=== PATIENT | male | born 1980 | race Caucasian/White ===

== ENCOUNTER 2016-07-14 08:21 | Emergency (ER) ==
[2016-07-14 08:28] VITALS: BP 147/88; TEMP 98.4; BMI 37.9
[2016-07-14] MEDS ORDERED: TORADOL IVP STA (08:45)
--- NOTE | 2016-07-14 08:45 | ED.PDOC ---
General ED Provider: Dr. NIURKA ROMERO JR Chief Complaint: Abdominal Pain Stated Complaint: PAIN TO LEFT FLANK TO ABD AND RADIATES INTO GROIN SINCE WEDNESDAY --SIMILAR TO KIDNEY STONE IN PAST--PAIN NOW IN LEFT TESTICLE[End]2 weeks 98.4 82 20 97% 147/88 6/10 LEFT FLANK PAIN[End]. VASECTOMY,KIDNEY STONE(removed per dr westbrook at [facility]) Time Seen by Physician: 09:09 Mode of Arrival: Walk-In Information Source: Patient Exam Limitations: No limitations Primary Care Provider: MARIA L ESPANA Nursing and Triage Documentation Reviewed and Agree: No Review of Systems - Review Of Systems Constitutional: Reports: No symptoms Eyes: Reports: No symptoms Ears, Nose, Mouth, Throat: Reports: No symptoms Respiratory: Reports: No symptoms Cardiac: Reports: No symptoms GI: Reports: Abdominal pain (left back and genital) : Reports: Frequency, Urgency, Other (dark) Musculoskeletal: Reports: Back pain (left flank) Skin: Reports: No symptoms Neurological: Reports: No symptoms Endocrine: Reports: No symptoms Hematologic/Lymphatic: Reports: No symptoms All Other Systems: Other Past Medical History - Past Medical History Previously Healthy: Yes Endocrine: Reports: None Cardiovascular: Reports: None Respiratory: Reports: None Hematological: Reports: None Gastrointestinal: Reports: None Genitourinary: Reports: Kidney stones, Other Neuro/Psych: Reports: None Musculoskeletal: Reports: None Cancer: Reports: None - Surgical History General Surgical History: Reports: Hernia Repair (BILAT. HERNIA REPAIR WITH MESH ), Other (R hernia repair with mesh) - Family History Family History: Reports: Unknown - Social History Smoking Status: Former smoker Hx Substance Use: No Alcohol Screening: Occasionally Physical Exam - Physical Exam Appearance: Ill-appearing Pain Distress: Moderate Eyes: ELIJAH, EOMI, Conjunctiva clear ENT: Ears normal, Nose normal, Oropharynx normal Neck: Supple Respiratory: Airway patent, Breath sounds clear, Breath sounds equal, Respirations nonlabored Cardiovascular: RRR, Pulses normal, No rub, No murmur GI/: Soft, No masses (left testicle pain; normal sensitivity no epididymal tenderness on exam ), Tender (minimal inguinal tenderness, left cvat) Musculoskeletal: Normal strength, ROM intact, No edema, No calf tenderness Skin: Warm, Dry, Normal color Neurological: Sensation intact, Motor intact, Reflexes intact, Cranial nerves intact, Alert, Oriented Psychiatric: Affect appropriate, Mood appropriate Critical Care Note - Critical Care Note Total Time (mins): 0 Course - Course Hematology/Chemistry: 07/14/16 09:00 07/14/16 09:00 Orders, Labs, Meds: Lab Review 07/14/16 07/14/16 05:05 09:00 WBC 8.66 RBC 5.20 Hgb 15.5 Hct 44.3 MCV 85.2 MCH 29.8 MCHC 35.0 RDW Coeff of [place] 11.9 Plt Count 275 Immature Gran % (Auto) 0.6 Neut % (Auto) 70.6 Lymph % (Auto) 20.8 [place] % (Auto) 6.1 Eos % (Auto) 1.3 Baso % (Auto) 0.6 Immature Gran # (Auto) 0.1 Neut # 6.1 Lymph # 1.8 [place] # 0.5 Eos # 0.1 Baso # 0.1 Sodium 141 Potassium 3.4 L Chloride 102 Carbon Dioxide 28 Anion Gap 14.4 BUN 9 Creatinine 0.84 Estimated GFR (MDRD) 104.00 BUN/Creatinine Ratio 10.71 Glucose 111 H Calcium 9.4 Total Bilirubin 0.47 AST 13 L ALT 15 Alkaline Phosphatase 82 Total Protein 7.4 Albumin 3.9 Globulin 3.5 Albumin/Globulin Ratio 1.11 Amylase 45 Lipase 25 Urine Color Yellow Urine Clarity Clear Urine pH 7.5 Ur Specific [place] 1.020 Urine Protein Negative Urine Glucose (UA) Negative Urine Ketones Negative Urine Blood Negative Urine Nitrite Negative Urine Bilirubin Negative Urine Urobilinogen 0.2 Ur Leukocyte Esterase Negative Orders Category Date Time Status ED IV/MEDIPORT/POWERPORT .ONCE EMERGENCY 07/14/16 08:44 Active AMYLASE Stat LAB 07/14/16 09:00 Completed CBC W/ AUTO DIFF Stat LAB 07/14/16 09:00 Completed COMPREHENSIVE METABOLIC PANEL Stat LAB 07/14/16 09:00 Completed LIPASE Stat LAB 07/14/16 09:00 Completed URINALYSIS C & S IF INDICATED Stat LAB 07/14/16 05:05 Completed 0.9 % Sodium Chloride [Saline Flush] MEDS 07/14/16 08:44 Active 1 syr IVF PRN PRN Ketorolac Tromethamine [Toradol] MEDS 07/14/16 08:45 Discontinued 30 mg IVP ONCE STA CT ABDOMEN/PELVIS WO CONTRAST Stat RADS 07/14/16 08:44 Completed Medications Generic Name Dose Route Start Last Admin Trade Name Freq PRN Reason Stop Dose Admin Sodium Chloride 1 syr 07/14/16 08:44 07/14/16 09:09 Saline Flush IVF 1 syr PRN PRN Administration To flush IV Discontinued Medications Generic Name Dose Route Start Last Admin Trade Name Freq PRN Reason Stop Dose Admin Ketorolac Tromethamine 30 mg 07/14/16 08:45 07/14/16 09:09 Toradol IVP 07/14/16 08:46 30 mg ONCE STA Administration Vital Signs: Temp Pulse Resp BP Pulse Ox 07/14/16 08:22 98.4 F 82 20 147/88 H 97 Departure - Departure Time of Disposition: 10:08 Disposition: HOME SELF-CARE Discharge Problem: Abdominal pain Instructions: Acute Abdominal Pain (ED) Condition: Good Pt referred to PMD for follow-up: Yes Additional Instructions: toradol for pain, may use naproxen(aleve)instead 500mg naproxen twice a day or 10mg toradol four times a day recheck PMD this week consider urology referral for symptoms check temperature daily cough deeply twice a day return if worse, if discharge, or new pain norco for pain not releived- causes constipation Prescriptions: Hydrocodone Bit/Acetaminophen [[place] 5-325] 1 - 2 tab PO Q6HR PRN #12 tablet PRN Reason: pain Ketorolac Tromethamine [Toradol] 10 mg PO QID PRN #20 tablet PRN Reason: PAIN Allergies/Adverse Reactions: Allergies No Known Allergies Allergy (Verified 07/14/16 08:29) Home Medications: Ambulatory Orders Losartan/Hydrochlorothiazide [Losartan-Hctz 100-25 mg Tab] 1 each PO BEDTIME 08/13 Zolpidem Tartrate [Ambien] 10 mg PO PRN PRN 04/02/16 Hydrocodone Bit/Acetaminophen [[place] 5-325] 1 - 2 tab PO Q6HR PRN #12 tablet Ketorolac Tromethamine [Toradol] 10 mg PO QID PRN #20 tablet 07/14/16
[2016-07-14 09:02] LABS: BILIRUBIN,URINE Negative (NEGATIVE); KETONES,URINE Negative (NEGATIVE); LEUKOCYTE ESTERASE ,URINE Negative (NEGATIVE); NITRITE,URINE Negative (NEGATIVE); PH,URINE 7.5 (5-9); PROTEIN,URINE Negative (NEGATIVE); URINE, BLOOD Negative (NEGATIVE)
[2016-07-14 09:18] LABS: ADD URINE MICROSCOPIC NO
--- NOTE | 2016-07-14 09:28 | CT ---
Examination: Noncontrasted helical CT examination of the abdomen pelvis. Comparison: 09/11/2014. Reason for study: Abdominal pain. FINDINGS: Patchy ground-glass and basilar atelectasis in the right lung base. No pneumothorax, ple ural effusion, or focal consolidation is seen within the lung bases. The heart does not appear enla rged. Evaluation of the intra-abdominal solid organs are limited by lack of intravenous contrast administr ation. The liver, spleen, adrenal glands, gallbladder, and pancreas are unremarkable. There is a similar a ppearing superior pole left renal cyst. No hydronephrosis, nephrolithiasis, or hydroureter is seen in either kidney. There is no focal bowel dilatation or transition point. The appendix is unremarkable without periapp endiceal fat stranding. No inflammatory changes are seen within the mesentery. No pelvic free fluid or intra-abdominal free air. There is a small periumbilical fat-containing hernia. No osteoblastic or osteolytic lesions. Typic ally benign appearing bone islands are noted in the L3 and L4 vertebral bodies. Impression: No acute findings are seen within the abdomen or pelvis.
[2016-07-14 09:30] LABS: BASOPHILS # (AUTO) 0.1 K/uL (0-0.2); BASOPHILS % (AUTO) 0.6 % (0.0-3.0); EOSINOPHILS # (AUTO) 0.1 K/ul (0.0-0.7); EOSINOPHILS % (AUTO) 1.3 % (0.0-7.0); HEMATOCRIT 44.3 % (42.0-52.0); HEMOGLOBIN 15.5 g/dl (14.0-18.0); IMMATURE GRANULOCYTE % (AUTO) 0.6 % (0.0-5.0); LYMPHOCYTES # (AUTO) 1.8 K/uL (0.60-3.4); LYMPHOCYTES % (AUTO) 20.8 (10.0-50.0); MEAN CORPUSCULAR HEMOGLOBIN 29.8 pg (27.0-31.0); MEAN CORPUSCULAR VOLUME 85.2 fl (80.0-94.0); MONOCYTES # (AUTO) 0.5 K/uL (0.4-2.0); MONOCYTES % (AUTO) 6.1 (0-10); NEUTROPHILS # (AUTO) 6.1 K/ul (2.0-6.9); NEUTROPHILS % (AUTO) 70.6; PLATELET COUNT 275 10^3/uL (140-440); WHITE BLOOD COUNT 8.66 K/ul (4.2-10.2)
[2016-07-14 09:50] LABS: ALBUMIN 3.9 g/dL (3.4-5.0); ALBUMIN/GLOBULIN RATIO 1.11; ANION GAP 14.4; BILIRUBIN,TOTAL 0.47 mg/dL (0.00-1.20); BUN/CREATININE RATIO 10.71; CALCIUM 9.4 mg/dL (8.2-10.2); CREATININE 0.84 mg/dL (0.60-1.10); POTASSIUM 3.4 mmol/L (3.5-5.1); TOTAL PROTEIN 7.4 g/dL (6.4-8.2)
== END 2016-07-14 10:36 | disposition home or self-care (01) ==
LOC: ED 08:21
DX: R10.9 Unspecified abdominal pain (principal); M54.9 Dorsalgia, unspecified; N50.812 Left testicular pain; R35.0 Frequency of micturition; R39.15 Urgency of urination; Z87.442 Personal history of urinary calculi
CPT/HCPCS: 36415; 80053; 81001; 82150; 83690; 85025; 96374; 99283

== ENCOUNTER 2016-07-28 16:45 | Outpatient (CLI) ==
[2016-07-28 17:01] LABS: BILIRUBIN,URINE Negative (NEGATIVE); KETONES,URINE Trace (NEGATIVE); LEUKOCYTE ESTERASE ,URINE Negative (NEGATIVE); NITRITE,URINE Negative (NEGATIVE); PH,URINE 5.5 (5-9); PROTEIN,URINE Negative (NEGATIVE); URINE, BLOOD Trace-intact (NEGATIVE)
[2016-07-28 17:02] LABS: ADD URINE MICROSCOPIC YES
== END 2016-07-28 16:46 | disposition home or self-care (01) ==
LOC: LAB 16:45
PROVIDERS: ATTEND Family Medicine
DX: R30.0 Dysuria (principal)
CPT/HCPCS: 81001

== ENCOUNTER 2016-07-30 06:51 | Outpatient (CLI) ==
--- NOTE | 2016-07-30 08:59 | MRI ---
EXAM: MRI lumbar spine without IV contrast. DATE: 30 July 2016. HISTORY: Low back pain with sciatica. Tingling and pain in the left leg, numbness left foot. TECHNIQUE: Sagittal and axial T1W and T2W sequences of the lumbar spine along with sagittal IR and coronal T2W sequences were obtained using 1.2 [place] magnet. No IV contrast. COMPARISON: CT abdomen/pelvis 07/14/2016. FINDINGS: There are five [id number] lumbar vertebra. There is no lumbar scoliosis. No acute lumbar fracture, subluxation, osseous malignancy, or pars interarticularis defect is identified. Nanci mbar vertebra are normal in height. Bone marrow signal is normal. Chronic Schmorl's nodes are seen at T11, T12, L1, L2, and L3. Bone marrow signal is normal. Mild disc space narrowing is seen at L 5-S1. Remaining intervertebral discs are normal in height. Congenitally short pedicles are observe d at several levels. No sacral fracture or stress reaction is evident. SI joints are unremarkable. Conus medullaris terminates at L1 inferior endplate. Visible spinal cord is normal. No retroperitoneal lymphadenopathy, paraspinal mass, or aortic aneurysm is detected. Paraspinal mus culature is symmetric bilaterally. Visible portions of the liver, spleen, adrenal glands and kidney s are normal. Segmental analysis: T12-L1: Normal. L1-2: Minimal posterior disc bulge and a dorsal epidural fat cause triangulation the canal. Each f oramen is patent. L2-3: Minimal concentric disc bulge, minor facet arthropathy, and dorsal epidural fat cause moderat e thecal sac narrowing and mild/moderate bilateral foraminal narrowing. L3-4: Small posterior to foraminal disc bulge, minor facet arthropathy and dorsal epidural fat caus e mild central canal stenosis and marked bilateral foraminal stenoses. Each L3 nerve root contacts the disc bulge in the foramen. L4-5: Small concentric disc bulge and minor facet arthropathy cause triangulation of the canal and marked narrowing at the opening to each foramen. Each L4 nerve root contacts the disc bulge at the foramen. L5-S1: Minimal physiologic disc bulge does not cause central stenosis or foraminal stenosis. IMPRESSIONS: 1. Lumbar spine minor disc bulges and minor facet arthropathy. 2. Multilevel central canal stenosis (L1-2: Minor. L2-3: Moderate. L3-4: Mild. L4-5: Minor). 3. Multilevel foraminal stenosis as described. Bilateral L3 and L4 nerve roots contact disc bulges near the foramen, and could be sources for pain/radiculopathy. 4. T - L-spine small, chronic Schmorl's nodes.
== END 2016-07-30 06:52 | disposition home or self-care (01) ==
LOC: RAD 06:51
PROVIDERS: ATTEND Family Medicine
DX: M54.42 Lumbago with sciatica, left side (principal)

== ENCOUNTER 2017-07-24 07:56 | Emergency (ER) ==
[2017-07-24 08:04] VITALS: BP 144/81; TEMP 98; BMI 37.3
--- NOTE | 2017-07-24 08:31 | ED.PDOC ---
General ED Provider: Dr. DAISY THOMAS Chief Complaint: Fever Stated Complaint: Anaid complains of fever with dizzness and nausea. States that the nausea started this morning. Also complains of a cough productive of green sputum with green nasal drainage. T max 101.2, States that his son had the flu couple weeks and was placed on Tamflu. Youngest son has the flu also Time Seen by Physician: 08:28 Mode of Arrival: Walk-In Information Source: Patient Exam Limitations: No limitations Primary Care Provider: MARIA L ESPANA Nursing and Triage Documentation Reviewed and Agree: Yes Reviewed sepsis parameters & appropriate labs ordered?: No System Inflammatory Response Syndrome: Not Applicable Sepsis Protocol: For patient's 13 years and over: Temp is 96.8 and below OR 101 and greater Pulse >90 BPM Resp >20/minute Acutely Altered Mental Status Are patient's symptoms suggestive of a new infection, such as: -Pneumonia -Skin, Soft Tissue -Endocarditis -UTI -Bone, Joint Infection -Implantable Device -Acute Abdominal Infection -Wound Infection -Meningitis -Blood Stream Catheter Infection -Unknown System Inflammatory Response Syndrome: Not Applicable Review of Systems - Review Of Systems Constitutional: Reports: Fever, Malaise (body aches ) Eyes: Reports: No symptoms Ears, Nose, Mouth, Throat: Reports: Throat pain Respiratory: Reports: Cough Cardiac: Reports: No symptoms GI: Reports: No symptoms : Reports: No symptoms Musculoskeletal: Reports: No symptoms Skin: Reports: No symptoms All Other Systems: Reviewed and Negative Past Medical History - Past Medical History Previously Healthy: Yes Endocrine: Reports: None Cardiovascular: Reports: None Respiratory: Reports: None Hematological: Reports: None Gastrointestinal: Reports: None Genitourinary: Reports: Kidney stones, Other Neuro/Psych: Reports: None Musculoskeletal: Reports: None Cancer: Reports: None - Surgical History General Surgical History: Reports: Hernia Repair (BILAT. HERNIA REPAIR WITH MESH ), Other (R hernia repair with mesh, vasectomy) - Family History Family History: Reports: Unknown - Social History Smoking Status: Former smoker Hx Substance Use: Yes Alcohol Screening: None - Immunizations Tetanus Shot up to Date: Yes Physical Exam - Physical Exam Appearance: Ill-appearing Ill-appearing: Moderate Pain Distress: Moderate Eyes: ELIJAH, EOMI, Conjunctiva clear Critical Care Note - Critical Care Note Total Time (mins): 0 Course - Course Orders, Labs, Meds: Lab Review 07/24/17 08:10 Influenza A (Rapid) Negative by naat Influenza B (Rapid) Positive by naat H Orders Category Date Time Status FLU A & B MOLECULAR [FLU A/B MOLECULAR] Stat LAB 07/24/17 08:10 Completed RAPID STREP SCREEN [MOLECULAR GROUP A STREP] Stat LAB 07/24/17 08:10 Completed CHEST, 2 VIEWS PA & LAT Stat RADS 07/24/17 08:41 Completed Vital Signs: Temp Pulse Resp BP Pulse Ox 07/24/17 07:57 98 F 82 16 144/81 H 98 Departure - Departure Time of Disposition: 09:10 Disposition: HOME SELF-CARE Discharge Problem: Influenza B Instructions: Influenza (ED) Condition: Stable Pt referred to PMD for follow-up: Yes IPMP verified?: No Additional Instructions: Push fluids Follow up with PCP in 3-5 days take Motrin or Tylenol as needed for fever or pain Take Tamiflu as prescribed. Prescriptions: Oseltamivir Phosphate [Tamiflu] 75 mg PO Q12HR #10 capsule Allergies/Adverse Reactions: Allergies No Known Allergies Allergy (Verified 07/14/16 08:29) Home Medications: Ambulatory Orders Losartan/Hydrochlorothiazide [Losartan-Hctz 100-25 mg Tab] 1 each PO BEDTIME 08/13 Zolpidem Tartrate [Ambien] 10 mg PO PRN PRN 04/02/16 Hydrocodone Bit/Acetaminophen [[place] 5-325] 1 - 2 tab PO Q6HR PRN #12 tablet Ketorolac Tromethamine [Toradol] 10 mg PO QID PRN #20 tablet 07/14/16 Oseltamivir Phosphate [Tamiflu] 75 mg PO Q12HR #10 capsule 07/24/17 Disposition Discussed With: Patient
--- NOTE | 2017-07-24 09:03 | DI ---
EXAM: PA and lateral views of the chest HISTORY: Cough COMPARISON: Chest Xray from 09/09/2014 FINDINGS: Lungs are clear with no lobar consolidation, failure, large effusion or significant atelec tasis. Cardiac and mediastinal silhouettes show no acute abnormality. No acute osseous or soft tiss ue abnormalities. IMPRESSION: No active disease.
== END 2017-07-24 09:23 | disposition home or self-care (01) ==
LOC: ED 07:56
DX: J10.1 Influenza due to other identified influenza virus with other respiratory manifestations (principal)
CPT/HCPCS: 87502; 87651; 99282